=== PATIENT | male | born 1990 | race Hispanic/Latino ===

== ENCOUNTER 2018-07-11 02:31 | Emergency (ER) | payer BC ==
[2018-07-11] MEDS ORDERED: Sodium Chloride 0.9% 1,000 ML IV STA (03:01)
--- NOTE | 2018-07-11 03:02 | ED PDOC ---
HPI: Psych/Substance Abuse Chief Complaint (Provider): ETOH History Per: EMS Additional Complaint(s): 27 y/o male brought in by EMS for evaluation of acute alcohol intoxication. Patient vomiting in triage. HPI limited due to patient's current state. No signs of trauma noted <Cathy Alejandra - Last Filed: 07/11/18 05:38> <Kevan Amaya - Last Filed: 07/11/18 07:27> Time Seen by Provider: 07/11/18 02:39 Chief Complaint (Nursing): Alcohol Ingestion Past Medical History Reviewed: Historical Data, Nursing Documentation, Vital Signs Vital Signs: Last Vital Signs Temp 95.4 F L 07/11/18 02:33 Pulse 107 H 07/11/18 02:33 Resp 16 07/11/18 02:33 BP 130/74 07/11/18 02:33 Pulse Ox 96 07/11/18 02:33 - Family History Family History: States: Unknown Family Hx <Cathy Alejandra C - Last Filed: 07/11/18 05:38> Vital Signs: Last Vital Signs Temp 95.4 F L 07/11/18 02:33 Pulse 107 H 07/11/18 02:33 Resp 16 07/11/18 02:33 BP 130/74 07/11/18 02:33 Pulse Ox 96 07/11/18 05:43 <Kevan Amaya - Last Filed: 07/11/18 07:27> - Allergies Allergies/Adverse Reactions: Allergies Allergy/AdvReac Type Severity Reaction Status Date / Time Unobtainable Allergy Verified 07/11/18 02:35 Review of Systems Review Of Systems: ROS cannot be obtained secondary to pt's inabilty to answer questions. <Cathy Alejandra - Last Filed: 07/11/18 05:38> Physical Exam - Reviewed Nursing Documentation Reviewed: Yes Vital Signs Reviewed: Yes - Physical Exam Appears: Positive for: Well, Non-toxic, No Acute Distress (sleeping) Head Exam: Positive for: ATRAUMATIC, NORMAL INSPECTION, NORMOCEPHALIC Skin: Positive for: Normal Color Eye Exam: Positive for: Normal appearance, EOMI, PERRL Cardiovascular/Chest: Positive for: Regular Rate, Rhythm Respiratory: Positive for: Normal Breath Sounds Gastrointestinal/Abdominal: Positive for: Normal Exam Back: Positive for: Normal Inspection Extremity: Positive for: Normal ROM Neurological/Psych: Positive for: Alert (responds to sternal rub) <Cathy Alejandra - Last Filed: 07/11/18 05:38> - Laboratory Results Result Diagrams: 07/11/18 05:13 07/11/18 05:13 - ECG O2 Sat by Pulse Oximetry: 96 - Progress ED Course And Treament: -cbc -cmp -alcohol -IV NS bolus -IV zofran <Cathy Alejandra - Last Filed: 07/11/18 05:38> - Laboratory Results Result Diagrams: 07/11/18 05:13 07/11/18 05:13 Lab Results: Total Bilirubin 0.3 mg/dl (0.2-1.3) 07/11/18 05:13 AST 61 U/L (17-59) H 07/11/18 05:13 ALT 57 U/L (21-72) 07/11/18 05:13 Alkaline Phosphatase 56 U/L (38-126) 07/11/18 05:13 Total Protein 7.7 G/DL (6.3-8.2) 07/11/18 05:13 Albumin 4.7 g/dL (3.5-5.0) 07/11/18 05:13 Globulin 3.1 gm/dL (2.2-3.9) 07/11/18 05:13 Albumin/Globulin Ratio 1.5 (1.0-2.1) 07/11/18 05:13 <Kevan Amaya - Last Filed: 07/11/18 07:27> Medical Decision Making Medical Decision MakinAM Patient awake, alert, steady gait, doesn't remember anything that happened Will discharge home <Kevan Amaya - Last Filed: 07/11/18 07:27> Disposition - Disposition Disposition Time: 06:00 Patient Signed Over To: Kevan Amaya Handoff Comments: pending sobriety and final dispo <Cathy Alejandra - Last Filed: 07/11/18 05:38> - Patient ED Disposition Is Patient to be Admitted: No - Disposition Disposition: Routine/Home Disposition Time: 07:00 <Kevan Amaya - Last Filed: 07/11/18 07:27> - Clinical Impression Clinical Impression: Alcohol intoxication - Disposition Condition: STABLE Instructions: Alcohol Use - When Is Drinking a Problem? Forms: [facility] ([place]in)
[2018-07-11 05:20] LABS: BASO % 0.5 % (0.0-2.0); EOS # 0.1 K/uL (0.0-0.7); EOS % 0.6 % (0.0-4.0); HEMOGLOBIN 16.6 g/dL (12.0-18.0); LYMPH # 1.4 K/uL (1.0-4.3); LYMPH % 16.5 % (20.0-40.0); MEAN CELL VOLUME 87.4 fl (80.0-94.0); MEAN CORPUSCULAR HEMOGLOBIN 30.6 pg (27.0-31.0); MEAN PLATELET VOLUME 8.7 fl (7.2-11.7); MONO # 0.5 K/uL (0.0-0.8); MONO % 5.7 % (0.0-10.0); NEUT # 6.6 K/uL (1.8-7.0); NEUT % 76.7 % (50.0-75.0); NRBC % 0.4 % (0.0-0.0); RBC 5.44 Mil/uL (4.40-5.90); RED CELL DISTRIBUTION WIDTH 12.6 % (11.5-14.5); WHITE BLOOD COUNT 8.6 K/uL (4.8-10.8)
[2018-07-11 05:29] LABS: ALB/GLOB RATIO 1.5 (1.0-2.1); ALBUMIN 4.7 g/dL (3.5-5.0); ALT/SGPT 57 U/L (21-72); AST/SGOT 61 U/L (17-59); BLOOD UREA NITROGEN 16 mg/dl (9-20); CALCIUM 8.8 mg/dL (8.4-10.2); GFR NON-AFRICAN AMERICAN > 60
[2018-07-11 07:52] VITALS: O2SAT 99
[2018-07-11 09:55] VITALS: BP 138/96; PULSE 88; RESP 18; TEMP 97.9
== END 2018-07-11 08:33 | disposition home or self-care (01) ==
LOC: H.ER 02:31
DX: F10.129 Alcohol abuse with intoxication, unspecified (principal)
CPT/HCPCS: 80053; 85025; 99284; G0480